=== PATIENT | female | born 1995 | race Caucasian/White ===

== ENCOUNTER → 2020-06-24 | Outpatient (CLI) | payer BC, SELFPAY ==
[2020-06-24 14:36] VITALS: BMI 41.8
[2020-06-24 18:08] LABS: Amphetamine Urine VISTA NEGATIVE (<1000 ng/mL); Barbiturate Urine VISTA NEGATIVE (< 200 ng/mL); Benzodiazepine Urine VISTA NEGATIVE (< 200 ng/mL); Cocaine Urine VISTA NEGATIVE (< 300 ng/mL); Ecstacy Urine VISTA NEGATIVE (< 500 ng/mL); Methadone Urine VISTA NEGATIVE (< 300 ng/mL); PCP Urine VISTA NEGATIVE (< 25 ng/mL); THC Urine VISTA NEGATIVE (< 50 ng/mL); Vista UDS pH Range 6
[2020-06-27 03:07] LABS: Chlamydia By Nucleic Acid AMP Negative (Negative)
[2020-06-27 10:06] LABS: Gonococcus By Nucleic Acid AMP Negative (Negative)
[2020-07-01 20:40] LABS: HPV Reflexed? NOT INDICATED
== END | disposition home or self-care (01) ==
LOC: LABSPEC 16:21
PROVIDERS: PCP Family Medicine; Referring Provider Obstetrics & Gynecology; Visit Provider Obstetrics & Gynecology
DX: Z34.90 Encounter for supervision of normal pregnancy, unspecified, unspecified trimester (principal); Z12.4 Encounter for screening for malignant neoplasm of cervix; Z11.3 Encounter for screening for infections with a predominantly sexual mode of transmission
CPT/HCPCS: 80307; 87077; 87086; 87088; 87186; 87491; 87591; 88175; G0145

== ENCOUNTER → 2020-07-22 13:44 | Outpatient (CLI) | payer BC, SELFPAY ==
[2020-06-24 14:36] VITALS: BMI 41.8
[2020-07-22 14:03] LABS: Absolute Lymphocyte Count 1.36 X10^3/uL (0.83-4.51); Absolute Neutrophil Count 6.4 X10^3/uL (2.0-7.7); Basophil# 0.01 X10^3/uL; Basophil% 0.1 % (0-1); Eosinophil# 0.13 X10^3/uL; Eosinophils% 1.6 % (0-5); Hemoglobin 11.4 g/dL (12.0-15.0); Lymphocyte # 1.36 X10^3/ul (4.0); Lymphocyte % 16.3 % (19-41); Mean Corp Hgb Conc 31.7 g/dL (32-36); Mean Corpuscular Hgb 24.7 pg (27.0-32.0); Mean Corpuscular Volume 78.1 fL (81-99); Mean Platelet Vol. 10.6 fl (6.2-12.0); Monocyte% 4.8 % (0-10); NRBC Flagged by Analyzer 0 % (0-5); Neutrophil # 6.39 X10^3/uL (2.7-7.7); Neutrophil % 76.6 % (47-70); Platelet Count 191 K/mm3 (150-450); RBC Distribution Width CV 15.1 % (11.6-14.6); RBC Distribution Width SD 42.4 fl (35.1-43.9); Red Blood Count 4.61 M/mm3 (4.2-5.4); White Blood Count 8.3 K/mm3 (4.4-11.0)
[2020-07-22 14:28] LABS: Glucose Challenge Gest 1H 50g 92 mg/dL (70-140)
[2020-07-22 15:16] LABS: HIV - WCH Non-Reactive (Nonreactive); Hepatitis B Surface Antigen Non-Reactive (Nonreactive); Hepatitis C Antibody Non-Reactive (Nonreactive); Rubella IgG Reactive (Nonreactive); Syphilis Antibodies Non-reactive
== END ==
PROVIDERS: PCP Family Medicine; Referring Provider Obstetrics & Gynecology; Visit Provider Obstetrics & Gynecology
DX: Z34.90 Encounter for supervision of normal pregnancy, unspecified, unspecified trimester (principal)
CPT/HCPCS: 36415; 82950; 85025; 86703; 86762; 86780; 86803; 86850; 86900; 86901; 87340

== ENCOUNTER → 2020-11-12 10:42 | Outpatient (CLI) | payer BC, SELFPAY ==
[2020-10-14 13:35] VITALS: BMI 43.4
[2020-11-12 11:07] LABS: Absolute Lymphocyte Count 1.21 X10^3/uL (0.83-4.51); Absolute Neutrophil Count 8.2 X10^3/uL (2.0-7.7); Basophil# 0.01 X10^3/uL; Basophil% 0.1 % (0-1); Hematocrit 32.2 % (37-47); Lymphocyte # 1.21 X10^3/ul (0.83-4.51); Lymphocyte % 12.1 % (19-41); Mean Corp Hgb Conc 31.1 g/dL (32-36); Mean Corpuscular Volume 77.2 fL (81-99); Mean Platelet Vol. 10.6 fl (6.2-12.0); Monocyte# 0.41 X10^3/uL; Monocyte% 4.1 % (0-10); NRBC Flagged by Analyzer 0 % (0-5); Neutrophil # 8.15 X10^3/uL (2.7-7.7); Neutrophil % 81.6 % (47-70); Platelet Count 201 K/mm3 (150-450); RBC Distribution Width CV 16.3 % (11.6-14.6); Red Blood Count 4.17 M/mm3 (4.2-5.4)
[2020-11-12 11:28] LABS: Glucose Challenge Gest 1H 50g 107 mg/dL (70-140)
== END ==
PROVIDERS: PCP Family Medicine; Referring Provider Obstetrics & Gynecology; Visit Provider Obstetrics & Gynecology
DX: O09.90 Supervision of high risk pregnancy, unspecified, unspecified trimester (principal); O36.0190 Maternal care for anti-D [Rh] antibodies, unspecified trimester, not applicable or unspecified; Z3A.00 Weeks of gestation of pregnancy not specified
CPT/HCPCS: 36415; 82950; 85025; 86850; 86900; 86901

== ENCOUNTER → 2020-11-26 08:56 | Outpatient (CLI) | payer BC, SELFPAY ==
[2020-11-12 12:02] VITALS: BMI 43.4
--- NOTE | 2020-11-26 08:58 | US_ITS ---
STUDY: SECOND AND THIRD TRIMESTER OBSTETRICAL ULTRASOUND - LIMITED REASON FOR EXAM: Female, 25 years old LGA LMP: 04/25/2020. PRIOR ULTRASOUND: Prior comparison studies are not available for review at this time. TECHNIQUE: Transabdominal TECHNICAL QUALITY: Adequate. FINDINGS: There is a single intrauterine fetus. The fetus is in a breech presentation. There is demonstrated cardiac activity with a heart rate of 150 bpm. There is a normal amniotic fluid volume. The largest amniotic fluid pocket measures 4.6 cm x 3.9 cm. The amniotic fluid index (WALLY) is 14.2 cm. The placenta is posterior in location and is not low lying. There are Grade 1 placental changes. The cervix measures 7.7 cm in length. BIOMETRY: BPD: 7.45 cm: 29 weeks, 6 days HC: 28.43 cm: 31 weeks, 1 days AC: 28.18 cm: 32 weeks, 1 days FL: 5.96 cm: 31 weeks, 0 days Age by LMP: 30 weeks, 5 days. LEONEL by LMP: 01/30/2021. age by prior US: 30 weeks, 5 days. LEONEL by prior US: 01/30/2021. age by current US: 31 weeks, 1 days. LEONEL by current US: 01/28/2021. Estimated weight: 1797 grams, +/- 270 grams, 67.3 percentile. US/OB Limited With Biometrics IMPRESSION: Single live intrauterine gestation with a mean gestational age of 30 weeks and 5 days. The measurements obtained today to follow within the normal expected range. Electronically Signed: Sanket Conde MD at 14:24 EDT , Service support ,
[2020-11-26 12:06] LABS: Ferritin 5 ng/mL (8-252); Iron 47 ug/dL (50-170); Iron Binding Capacity,Total 518 ug/dL (250-450); PERCENT IRON SATURATION 9.1 % (15.0-55.0)
== END ==
PROVIDERS: PCP Family Medicine; Referring Provider Obstetrics & Gynecology; Visit Provider Obstetrics & Gynecology
DX: O99.013 Anemia complicating pregnancy, third trimester (principal); D58.2 Other hemoglobinopathies; O98.513 Other viral diseases complicating pregnancy, third trimester; U07.1 COVID-19; O99.213 Obesity complicating pregnancy, third trimester; E66.9 Obesity, unspecified; Z3A.30 30 weeks gestation of pregnancy
CPT/HCPCS: 36415; 76816; 82728; 83540; 83550

== ENCOUNTER → 2020-12-27 08:46 | Outpatient (CLI) | payer BC, SELFPAY ==
[2020-11-26 11:16] VITALS: BMI 43.4
--- NOTE | 2020-12-27 08:53 | US_ITS ---
STUDY: SECOND AND THIRD TRIMESTER OBSTETRICAL ULTRASOUND REASON FOR EXAM: Female, 25 years old growth LMP: 04/25/2020. TECHNIQUE: Transabdominal TECHNICAL QUALITY: Adequate. PRIOR ULTRASOUND: Comparison is made with prior study dated 11/26/2020. FINDINGS: There is a single intrauterine fetus. The fetus is in a cephalic presentation. There is demonstrated cardiac activity with a heart rate of 127 bpm. There is a normal amniotic fluid volume. The largest amniotic fluid pocket measures 5.8 cm. The amniotic fluid index (WALLY) is 14.3 cm. The placenta is There are Grade 1 placental changes. The cervix measures 3.3 cm in length. The adnexal regions are not visualized. BIOMETRY: BPD: 8.64 cm: 34 weeks, 5 days HC: 31.44 cm: 35 weeks, 1 days AC: 33.63 cm: 37 weeks, 3 days FL: 6.71 cm: 34 weeks, 3 days CI: 80% FL/BPD: 78% FL/HC: FL/AC: 20% HC/AC: 0.94 age by current US: 35 weeks, 1 days. LEONEL by current US: 01/30/2021. Estimated weight: 2927 grams, +/- 439 grams, 91 %. age by prior US: 35 weeks, 3 days. LEONEL by prior US: 01/28/2021. Age by LMP: 35 weeks, 1 days. LEONEL by LMP: 01/30/2021. US/OB Limited With Biometrics IMPRESSION: Single live intrauterine gestation with a mean gestational age of 35 weeks and 3 days. The measurements obtained today fall within the normal expected range. Electronically Signed: Sanket Conde MD at 12:36 EDT , Service support ,
== END ==
PROVIDERS: PCP Family Medicine; Referring Provider Nurse Practitioner Women's Health; Visit Provider Nurse Practitioner Women's Health
DX: O98.513 Other viral diseases complicating pregnancy, third trimester (principal); U07.1 COVID-19; Z3A.35 35 weeks gestation of pregnancy
CPT/HCPCS: 76816

== ENCOUNTER → 2021-01-30 | Outpatient (CLI) | payer BC, SELFPAY | END | disposition home or self-care (01) | LOC: LABSPEC 13:18 | PROVIDERS: PCP Family Medicine; Referring Provider Obstetrics & Gynecology; Visit Provider Obstetrics & Gynecology | DX: O09.90 Supervision of high risk pregnancy, unspecified, unspecified trimester (principal); Z3A.00 Weeks of gestation of pregnancy not specified | CPT/HCPCS: 87635; U0005; U0003 ==

== ENCOUNTER 2021-01-31 01:35 | Inpatient (IN) | payer BC, MEDICAID, SELFPAY ==
[2021-01-31] VITALS (18 sets, daily range): BP systolic 102–129; BP diastolic 48–85; PULSE 72–109; RESP 16; TEMP 36–36.8; O2SAT 92–100; BMI 45.6
[2021-01-31] MEDS: Lactated Ringers 1,000 ML 999 ML IV (01:50)
[2021-01-31 02:04] LABS: Absolute Lymphocyte Count 1.64 X10^3/uL (0.83-4.51); Absolute Neutrophil Count 9.9 X10^3/uL (2.0-7.7); Basophil# 0.04 X10^3/uL; Basophil% 0.3 % (0-1); Eosinophil# 0.11 X10^3/uL; Eosinophils% 0.9 % (0-5); Hematocrit 34.4 % (37-47); Hemoglobin 10.3 g/dL (12.0-15.0); Lymphocyte # 1.64 X10^3/ul (0.83-4.51); Lymphocyte % 13.1 % (19-41); Mean Corp Hgb Conc 29.9 g/dL (32-36); Mean Corpuscular Hgb 21.5 pg (27.0-32.0); Mean Corpuscular Volume 71.8 fL (81-99); Mean Platelet Vol. 10.8 fl (6.2-12.0); Monocyte# 0.64 X10^3/uL; Monocyte% 5.1 % (0-10); NRBC Flagged by Analyzer 0 % (0-5); Neutrophil # 9.92 X10^3/uL (2.7-7.7); Neutrophil % 79.6 % (47-70); Platelet Count 259 K/mm3 (150-450); RBC Distribution Width CV 16.9 % (11.6-14.6); RBC Distribution Width SD 43.6 fl (35.1-43.9); Red Blood Count 4.79 M/mm3 (4.2-5.4); White Blood Count 12.5 K/mm3 (4.4-11.0)
[2021-01-31] MEDS: Oxytocin 30 units/NS 500 ml 30 UNITS/500 ML IV.SOLN 334 UNITS IV (02:22)
--- NOTE | 2021-01-31 02:29 | HP.PCM.OB_ITS ---
HPI - General General Date of Admission: 01/31/21 HPI Narrative DANK LARSON, is a 25 F at 40/1 who presents in active labor Maternal Data Information LEONEL Calculator Estimated Delivery Date Method Current WG Current Estimate 01/30/21 Ultrasound #1 40w 1d Other Estimates 01/19/21 LMP (Certain) 41w 5d PFSH PFSH Medical History Anxiety and depression Atrial tachycardia Hemoglobin D trait Sleep apnea Home Medications multivitamin no.47-iron fum 27 mg-folate no.1 1 mg-dha 300 mg capsule cap PO 06/19/20 [History Last Taken Unknown] fluoxetine 20 mg capsule 20 mg PO DAILY #30 cap 07/22/20 [Rx Last Taken Unknown] famotidine 20 mg tablet 20 mg PO BID #60 tab 09/25/20 [Rx Last Taken Unknown] Allergy/AdvReac Type Severity Reaction Status Date / Time No Known Allergies Allergy Verified 01/30/21 10:52 Family History Grandfather Diabetes Surgical History History of ankle surgery History of cardiac radiofrequency ablation Social History adopted: No household members: family housing: house number of children: 1 current occupational status: employed current occupation: [employer] pets and animals: No Smoking Status: Never smoker second hand exposure: No alcohol intake: current alcohol intake frequency: holidays/special occasions only details: not while substance use type: does not use seatbelt use: always do you feel safe at home: Yes 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 Date Name GA/Weeks Outcome Route Bth Weight Gen Labor Lgth Anesthesia Del Locatn Provider FOB 05/12/18 Ze 37 live - full term 9lbs 3oz Male 4-[address] [facility] [address] Tonja Sims Delivery Date: 05/12/18 No complications Rosario Burrell Visit Details Expected Delivery Route/Plan Labor Preferences- CB/BF classes: no labor support person: Levi labor intervention preferences: prefers to avoid catheter in labor pain management options preferred: epidural but natural as long as possible cut cord/dad catch: cord : yes PP control planned: progesterone pill discussed possible routes of delivery and associated risks: [] special requests: [] Plans flu vaccine: declines tdap vaccine: declines rhogam: na LARC form signed: yes Problem list reviewed and updated with the most current plan of care details and appropriate orders placed. Relevant counseling for the gestational age provided. Continue routine care and follow up unless otherwise noted in visit notes/problem list details OB Flowsheet Initial Weight: 263 lb Date -?-?-?-?-?-?-?-?-?-?-?-?- EGA Weight BP Urine Prot -?-?-?-?-?-?-?-?-?-?-?-?- Glucose FHR FuHt Pres Dilation -?-?-?-?-?-?-?-?-?-?-?-?- Effaced St Visit Note 06/24/20 -?-?-?-?-?-?-?-?-?-?-?-?- 8w 4d 263 lb (+0 oz) 100/80 -?-?-?-?-?-?-?-?-?-?-?-?- 160 -?-?-?-?-?-?-?-?-?-?-?-?- SM- CRL cons wit h LMP SM- CRL 1.7 cm NOT cons with LMP 07/22/20 -?-?-?-?-?-?-?-?-?-?-?-?- 12w 4d 264 lb (+16 oz) 104/82 Negative -?-?-?-?-?-?-?-?-?-?-?-?- Negative 160 -?-?-?-?-?-?-?-?-?-?-?-?- SM- no vb amanda stakrs , discussed increased mood symptoms, start prozac 08/19/20 -?-?-?-?-?-?-?-?-?-?-?-?- 16w 4d 267 lb 2 oz (+4 lb 2 oz) 116/80 Negative -?-?-?-?-?-?-?-?-?-?-?-?- Negative 145 -?-?-?-?-?-?-?-?-?-?-?-?- GP - no cramping or bleeding. Anatomy scan ordered. Still do not have prior OB records - will call to obtain. 09/17/20 -?-?-?-?-?-?-?-?-?-?-?-?- 20w 5d 270 lb (+7 lb) 102/74 Negative -?-?-?-?-?-?-?-?-?-?-?-?- Negative 155 -?-?-?-?-?-?-?-?-?-?-?-?- MH-No Vb, LOF. G ood FM. Enc baby ASA daily. Growth US at 28 wk 10/14/20 -?-?-?-?-?-?-?-?-?-?-?-?- 24w 4d 273 lb 4 oz (+10 lb 4 oz) 100/70 Negative -?-?-?-?-?-?-?-?-?-?-?-?- Negative 155 24 -?-?-?-?-?-?-?-?-?-?-?-?- GP - no LOF, VB, DFM, ctx. Discussed last labor - had very positive experience so would like to try to utilize same medications as last time. 11/12/20 -?-?-?-?-?-?-?-?-?-?-?-?- 28w 5d 275 lb (+12 lb) 124/80 Negative -?-?-?-?-?-?-?-?-?-?-?-?- Negative 145 32 -?-?-?-?-?-?-?-?-?-?--?-?- SM- no vb lof go od fm no regular ctx discussed low blood counts and reocmmend iron studies. 11/26/20 -?-?-?-?-?-?-?-?-?-?-?-?- 30w 5d 278 lb (+15 lb) 110/64 Negative -?-?-?-?-?-?-?-?-?-?-?-?- Negative 146 31 -?-?-?-?-?-?-?-?-?-?-?-?- MH-No Vb, LOF. G ood FM. Had growth US today. Larc. Francesca haque. Start NST at 32 wk 12/09/20 -?-?-?-?-?-?-?-?-?-?-?-?- 32w 4d 280 lb (+17 lb) 104/88 -?-?-?-?-?-?-?-?-?-?-?-?- 140 -?-?-?-?-?-?-?-?-?-?-?-?- SM- no vb lof go od fm no reuglar ctx nst today 12/20/20 -?-?-?-?-?-?-?-?-?-?-?-?- 34w 1d 279 lb 8 oz (+16 lb 8 oz) 128/68 Negative -?-?-?-?-?-?-?-?-?-?-?-?- Negative 140 -?-?-?-?-?-?-?-?-?-?-?-?- GP - NST only, r eactive 12/27/20 -?-?-?-?-?-?-?-?-?-?-?-?- 35w 1d 280 lb (+17 lb) 120/78 Negative -?-?-?-?-?-?-?-?-?-?-?-?- Negative 140 -?-?-?-?-?-?-?-?-?-?--?-?- SM- no vb lof go od fm no regular ctx 01/03/21 -?-?-?-?-?-?-?-?-?-?-?-?- 36w 1d 275 lb (+12 lb) 118/70 Trace -?-?-?--?-?-?-?-?-?-?-?-?- Negative 145 1 -?-?-?-?-?-?-?-?-?-?-?-?- 40 -3 GP - no LO F, VB, DFM, ctx. NST reactive 01/10/21 -?-?-?-?-?-?-?-?-?-?-?-?- 37w 1d 279 lb 4 oz (+16 lb 4 oz) 100/70 Negative -?-?-?-?-?-?-?-?-?-?-?-?- Negative 150 37 2 -?-?-?-?-?-?-?-?-?-?-?-?- 40 -1 GP - no LO F, VB, DFM, ctx. Discussed labor preferences. 01/16/21 -?-?-?-?-?-?-?-?-?-?-?-?- 38w 0d 280 lb 4 oz (+17 lb 4 oz) 124/70 Negative -?-?-?-?-?-?-?-?-?-?-?-?- Negative 140 2 -?-?-?-?-?-?-?-?-?-?-?-?- SM- no vb lof go od fm no reuglar ctx 01/23/21 -?-?-?-?-?-?-?-?-?-?-?-?- 39w 0d 138/80 Negative -?-?-?-?-?-?-?-?-?-?-?-?- Negative 140 39 -?-?-?-?-?-?-?-?-?-?-?-?- SM- no vb lof go od fm no reg ctx 01/30/21 -?-?-?-?-?-?-?-?-?-?-?-?- 40w 0d 283 lb 4 oz (+20 lb 4 oz) 122/70 Negative -?-?-?-?-?-?-?-?-?-?-?-?- Negative 150 40 Cephalic 4 -?-?-?-?-?-?-?-?-?-?-?-?- 60 -2 GP - no LO F, VB, dFM, ctx. IOL scheduled for 02/0301/31/21 -?-?-?-?-?-?-?-?-?-?-?-?- 40w 1d 282 lb 10.122 oz (+19 lb 10.122 oz) 104/48 -?-?-?-?-?-?-?-?-?-?-?-?- -?-?-?-?-?-?-?-?-?-?-?-?- NST FHR Rate Baby A Baseline: 130 Variability:: Moderate Accelerations:: 15 x 15 Decelerations:: Variable FHR Category:: Category II Uterine Activity:: q1-2 min ROS Eyes Eyes: Reports systems reviewed and no addt'l complaints, except as documented ENT HEENT: Reports systems reviewed and no addt'l complaints, except as documented Cardiovascular Cardiovascular: Reports systems reviewed and no addt'l complaints, except as documented Respiratory/Chest Respiratory/Chest: Reports systems reviewed and no addt'l complaints, except as documented Gastrointestinal Gastrointestinal: Reports systems reviewed and no addt'l complaints, except as documented Genitourinary Genitourinary: Reports systems reviewed and no addt'l complaints, except as documented Musculoskeletal Musculoskeletal: Reports systems reviewed and no addt'l complaints, except as documented Integumentary Integumentary: Reports systems reviewed and no addt'l complaints, except as documented Neurologic Neurologic: Reports systems reviewed and no addt'l complaints, except as documented Psychiatric Psychiatric: Reports systems reviewed and no addt'l complaints, except as documented Endocrine Endocrinology: Reports systems reviewed and no addt'l complaints, except as documented Hematologic/Lymphatic Hematologic/Lymphatic: Reports systems reviewed and no addt'l complaints, except as documented Allergic/Immunologic Allergic/Immunologic: Reports systems reviewed and no addt'l complaints, except as documented Vital Signs Vital Signs Vital Signs: 01/31/21 02:10 01/31/21 02:25 Pulse Rate 93 82 Blood Pressure 104/48 L BP Systolic 104 BP Diastolic 48 Pulse Ox 96 Weight Weight: 282 lb 10.122 oz Body Mass Index (BMI) 45.6 Physical Exam Const alert, oriented x3, no apparent distress, average body habitus, healthy appearing and well nourished HEENT normocephalic and moist oral mucous membranes Head and Scalp: atraumatic Eyes PERRL and EOMs intact bilaterally Neck full ROM Resp normal respiratory effort, no retractions and no use of accessory muscles Cardio regular rate and regular rhythm GI soft to palpation, non-tender and non-distended Extremity normal to inspection and full ROM Skin no rashes or lesions noted Neuro no focal motor deficits and no sensory deficits noted Psych mental status grossly normal, affect normal, speech normal and activity/motor behavior normal Labs Labs Labs: Blood Type A NEGATIVE Antibody Screen NEGATIVE Hct 34.4 % (37-47) L Hgb 10.3 g/dL (12.0-15.0) L Pap Smear Negative Obstetrics US Syphilis Total Ab Non-reactive Rubella IgG Antibody Reactive (Nonreactive) Hep Bs Antigen Non-Reactive (Nonreactive) Neisseria gonorrhoeae DNA (NELSY) Negative (Negative) HIV 1&2 Antibody Non-Reactive (Nonreactive) Glucose 1 Hr 50 gm 107 mg/dL (70-140) Assessment & Plan (1) Active labor at term: PLAN: Patient presents IAL, plan expectant management for , pitocin /AROM PRN if needed. Pain management: plans epidural. GBS positive plan IV PCN. Management of any complications: none I have reviewed the [facility] and made any clinically relevant updates. (2) Anemia affecting in third trimester: COMMENT: HgD trait. seen heme in past. (3) GBS (group B streptococcus) UTI complicating : QUALIFIERS: Trimester: first trimester Qualified Code(s): O23.41 - Unspecified infection of urinary tract in , first trimester; B95.1 - Streptococcus, group B, as the cause of diseases classified elsewhere COMMENT: s/p treatment, plan PCN in labor (4) Obesity affecting : QUALIFIERS: Trimester: second trimester Qualified Code(s): O99.212 - Obesity complicating , second trimester COMMENT: 1 tm glucola. encouraged healthy weight gain, third trimester testing. Growth US normal (5) Supervision of high risk , antepartum: COMMENT: PRR LEONEL: 01/30/21 girl PC: Ze Spouse: Levi (6) Rh negative status during : QUALIFIERS: Trimester: second trimester Qualified Code(s): O26.892 - Other specified related conditions, second trimester; Z67.91 - Unspecified blood type, Rh negative COMMENT: rhogam at 28 weeks and PRN (7) Anxiety and depression: COMMENT: prozac ordered. counseling encouraged. (8) Hemoglobin D trait: COMMENT: offered FOB testing. (9) History of cardiac radiofrequency ablation: COMMENT: [address] [place] [address] (10) Atrial tachycardia: COMMENT: Dx: 2014 (11) COVID-19 affecting , antepartum: COMMENT: growth US starting at 28 weeks; baby asa at 12 weeks (12) : QUALIFIERS: Weeks of gestation: 40 weeks Qualified Code(s): Z3A.40 - 40 weeks gestation of COMMENT: declines carrier,ntd, and genetic testing, nl anatomy
--- NOTE | 2021-01-31 02:32 | EX.PCM.OBRPT ---
Assessment & Plan (1) Active labor at term: (2) Spontaneous vaginal delivery: COMMENT: GP IAL 01/31 (precip) Girl-Kiki (3) Anemia affecting in third trimester: COMMENT: HgD trait. seen heme in past. (4) GBS (group B streptococcus) UTI complicating : QUALIFIERS: Trimester: first trimester Qualified Code(s): O23.41 - Unspecified infection of urinary tract in , first trimester; B95.1 - Streptococcus, group B, as the cause of diseases classified elsewhere COMMENT: s/p treatment, plan PCN in labor (5) Obesity affecting : QUALIFIERS: Trimester: second trimester Qualified Code(s): O99.212 - Obesity complicating , second trimester COMMENT: 1 tm glucola. encouraged healthy weight gain, third trimester testing. Growth US normal (6) Supervision of high risk , antepartum: COMMENT: PRR LEONEL: 01/30/21 girl PC: Ze Spouse: Levi (7) Rh negative status during : QUALIFIERS: Trimester: second trimester Qualified Code(s): O26.892 - Other specified related conditions, second trimester; Z67.91 - Unspecified blood type, Rh negative COMMENT: rhogam at 28 weeks and PRN (8) Anxiety and depression: COMMENT: prozac ordered. counseling encouraged. (9) Hemoglobin D trait: COMMENT: offered FOB testing. (10) History of cardiac radiofrequency ablation: COMMENT: [address] [place] [address] (11) Atrial tachycardia: COMMENT: Dx: 2014 (12) COVID-19 affecting , antepartum: COMMENT: growth US starting at 28 weeks; baby asa at 12 weeks (13) : QUALIFIERS: Weeks of gestation: 40 weeks Qualified Code(s): Z3A.40 - 40 weeks gestation of COMMENT: declines carrier,ntd, and genetic testing, nl anatomy Maternal Data Information LEONEL Calculator Estimated Delivery Date Method Current WG Current Estimate 01/30/21 Ultrasound #1 40w 1d Other Estimates 01/19/21 LMP (Certain) 41w 5d Vaginal Delivery Maternal Presentation Maternal Presentation: Active Labor Maternal Presentation: 25-year-old G2, P1 at 40 and 1 admitted in active labor. Patient made rapid cervical change from 6 cm to complete dilation and delivered precipitously. Operative Information Date of Procedure: 10/15/21 Pre-Operative Diagnosis: Term , active labor Post-Operative Diagnosis: Same Surgery / Procedure Performed: Spontaneous Vaginal Delivery Type of Anesthesia: None Drain: Ramirez to straight drain Estimated Blood Loss: 200 Findings Description of Procedure: Patient began pushing and delivered the head in the VERÓNICA presentation. The head was delivered atraumatically and no nuchal cord was noted. The anterior and posterior shoulders delivered without complication followed by the rest of the and the was placed on the maternal abdomen. Delayed cord clamping was employed for approximately 60 seconds. Cord was clamped and cut and gentle traction was applied to the cord and the placenta delivered spontaneously immediately following it was noted to be intact with three-vessel cord. The perineum and vagina were inspected and noted to have no laceration. EBL was 200 cc. Patient and tolerated delivery well. Presentation: Vertex and VERÓNICA Amniotic Membrane Rupture Type: Spontaneous Amniotic Fluid Description: Clear Placental Delivery Description: Spontaneous Placenta Disposition: [facility] Cord Vessel Description: 3 Vessels Cord Entanglement: None Infant A Gender: Female (1 minute): 9 (5 minute): 10 Delayed Cord Clamping: Yes Post Vaginal Delivery Medications Given After Delivery: IV Pitocin Episiotomy Description: None Laceration: None Complication Complications: None Procedures Urinary/Genital [id number]: [id number] [facility]
--- NOTE | 2021-01-31 02:36 | PCM.DC ---
Discharge Instructions Diet Discharge Diet: No restrictions Activity Discharge Activity: Return to Normal Activity, May Not Drive (while taking narcotic pain medications.) and May Shower May resume sexual activity in: 4-6 weeks Dressing / Incision Call your doctor if your incision/area has: Continuous Slow Oozing, Sudden Increased Bleeding, Increased Pain/ Swelling, Increased Redness and Foul Smelling Discharge Follow Up Care When: Call to make an appointment with your doctor in 6 weeks. If you had elevated Blood Pressure or 4th degree laceration you will need to be seen in 2 weeks. Test Results: Test results from this visit will be discussed in further detail at your follow-up appointment, if applicable. Discharge Plan Admission Admit Date/Time: 01/31/21 01:35 Primary Reason for Your Visit: Labor Attending Provider: Yisel Bhakta Primary Care Provider: Kavitha Noonan Instructions Patient Instructions: After a Vaginal Discharge Orders/Prescriptions Prescriptions: New ibuprofen 800 mg tablet 800 mg PO Q8H PRN (Reason: pain) Qty: 60 RF: 1 Continued PNV-DHA 27 mg iron-1 mg -300 mg capsule PO RF: 0 fluoxetine [Prozac] 20 mg capsule 20 mg PO DAILY Qty: 30 RF: 12 famotidine [Pepcid] 20 mg tablet 20 mg PO BID Qty: 60 RF: 6 Referrals / Follow Up: Kavitha Noonan MD [Primary Care Provider] -
[2021-01-31] MEDS: Ibuprofen 600 MG Tablet PO ×3 (03:32→19:46)
[2021-01-31] MEDS: 0.9% Saline Lock 10 ML Syringe IV (04:19)
[2021-01-31] MEDS: FLUoxetine 20 MG Capsule PO (09:38)
[2021-02-01 00:45] VITALS: BP 123/57; PULSE 82; RESP 18; TEMP 36.6; O2SAT 97
--- NOTE | 2021-02-01 03:09 | NURSING ---
PH9 Questionaire deferred. [place] Depression Scale used instead. 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 for discharge.
--- NOTE | 2021-02-01 07:13 | PCM.PN.OB ---
Subjective Subjective Patient doing well without complaints. Tolerating PO. Ambulating and voiding without difficulty. feeding well. Denies chest pain, shortness of breath, calf pain/swelling, fevers, chills, lightheadedness. Objective Data Objective Data Vital Signs: Vital Signs Temp Pulse Resp BP Pulse Ox 97.9 F 82 18 123/57 H 97 02/01/21 00:45 02/01/21 00:45 02/01/21 00:45 02/01/21 00:45 02/01/21 00:45 Oxygen Delivery Method Room Air Weight: 282 lb 10.122 oz Body Mass Index (BMI) 45.6 Intake & Output: Intake and Output for Last 24 Hours 01/30/21 01/31/21 02/01/21 23:59 23:59 23:59 Intake Total 810.58 / 810.58 Balance 810.58 / 810.58 Lab / Micro Data Result Diagrams: 01/31/21 01:50 Labs: Laboratory Results - last 24 hr 01/31/21 05:45: Screen NEGATIVE, Baby's Blood Type A POSITIVE, Baby's VALENTINA NEGATIVE ROS Constitutional Constitutional: Reports systems reviewed and no addt'l complaints, except as documented Cardiovascular Cardiovascular: Reports systems reviewed and no addt'l complaints, except as documented Respiratory/Chest Respiratory/Chest: Reports systems reviewed and no addt'l complaints, except as documented Gastrointestinal Gastrointestinal: Reports systems reviewed and no addt'l complaints, except as documented Physical Exam Const alert, oriented x3 and no apparent distress HEENT Head and Scalp: atraumatic Resp normal respiratory effort GI soft to palpation and non-tender Bimanual Exam - Vag & Uterus: uterus non-tender Uterus Palpation: uterus fundus firm (below Umbilicus) Assessment & Plan (1) Spontaneous vaginal delivery: COMMENT: GP MARTY 01/31 (precip) Girl-Kiki
[2021-02-01 08:31] VITALS: BP 121/72; PULSE 75; RESP 16; TEMP 36.1; O2SAT 97
[2021-02-01] MEDS: FLUoxetine 20 MG Capsule PO (11:53)
[2021-02-01 14:00] VITALS: BP 128/70; PULSE 80; RESP 16; TEMP 36.1; O2SAT 96
[2021-02-01 14:10] VITALS: BP 128/70; PULSE 80; RESP 16; TEMP 36.1; O2SAT 96
== END 2021-02-01 14:20 | disposition home or self-care (01) | DRG 805 ==
PROVIDERS: Admitting Provider Obstetrics & Gynecology; PCP Family Medicine; Visit Provider Obstetrics & Gynecology
DX: O76 Abnormality in fetal heart rate and rhythm complicating labor and delivery (principal); O99.42 Diseases of the circulatory system complicating childbirth; Z37.0 Single live birth; I47.1 Supraventricular tachycardia; O23.41 Unspecified infection of urinary tract in pregnancy, first trimester; O36.0130 Maternal care for anti-D [Rh] antibodies, third trimester, not applicable or unspecified; B95.1 Streptococcus, group B, as the cause of diseases classified elsewhere; O99.02 Anemia complicating childbirth; O42.92 Full-term premature rupture of membranes, unspecified as to length of time between rupture and onset of labor; D58.2 Other hemoglobinopathies; O62.3 Precipitate labor; O99.214 Obesity complicating childbirth; E66.9 Obesity, unspecified; O99.344 Other mental disorders complicating childbirth; F32.A Depression, unspecified; F41.9 Anxiety disorder, unspecified; Z3A.40 40 weeks gestation of pregnancy; Z86.16 Personal history of COVID-19
CPT/HCPCS: 59025; 59050; 85025; 85461; 86850; 86900; 86901; 90384; 99218; J7120; A4216; G0378; J2790

== ENCOUNTER → 2021-02-05 13:32 | Outpatient (CLI) | payer BC, MEDICAID, SELFPAY ==
[2021-02-05 14:08] LABS: Absolute Lymphocyte Count 1.52 X10^3/uL (0.83-4.51); Absolute Neutrophil Count 5.5 X10^3/uL (2.0-7.7); Basophil# 0.03 X10^3/uL; Basophil% 0.4 % (0-1); Eosinophil# 0.25 X10^3/uL; Eosinophils% 3.2 % (0-5); Hematocrit 32.4 % (37-47); Hemoglobin 9.6 g/dL (12.0-15.0); Lymphocyte # 1.52 X10^3/ul (0.83-4.51); Lymphocyte % 19.2 % (19-41); Mean Corp Hgb Conc 29.6 g/dL (32-36); Mean Corpuscular Hgb 21.9 pg (27.0-32.0); Mean Platelet Vol. 10.1 fl (6.2-12.0); Monocyte% 6.3 % (0-10); NRBC Flagged by Analyzer 0 % (0-5); Neutrophil % 69.5 % (47-70); Platelet Count 292 K/mm3 (150-450); RBC Distribution Width CV 16.9 % (11.6-14.6); RBC Distribution Width SD 45.6 fl (35.1-43.9); Red Blood Count 4.38 M/mm3 (4.2-5.4); White Blood Count 7.9 K/mm3 (4.4-11.0)
== END ==
PROVIDERS: PCP Family Medicine; Referring Provider Obstetrics & Gynecology; Visit Provider Obstetrics & Gynecology
DX: N93.9 Abnormal uterine and vaginal bleeding, unspecified (principal)
CPT/HCPCS: 36415; 85025

== ENCOUNTER → 2023-07-26 | Outpatient (CLI) | payer BC, SELFPAY ==
[2023-07-30 16:52] LABS: HPV Reflexed? NOT INDICATED
== END | disposition home or self-care (01) ==
LOC: LABSPEC 16:51
PROVIDERS: PCP Family Medicine; Referring Provider Obstetrics & Gynecology; Visit Provider Obstetrics & Gynecology
DX: Z12.4 Encounter for screening for malignant neoplasm of cervix (principal)
CPT/HCPCS: 88175; G0145

== ENCOUNTER → 2024-01-07 | Outpatient (CLI) | payer MEDICAID, SELFPAY ==
[2024-01-10 21:07] LABS: Chlamydia By Nucleic Acid AMP Negative (Negative); Gonococcus By Nucleic Acid AMP Negative (Negative)
== END | disposition home or self-care (01) ==
LOC: LABSPEC 15:16
PROVIDERS: PCP Family Medicine; Referring Provider Registered Nurse; Visit Provider Registered Nurse
DX: O99.210 Obesity complicating pregnancy, unspecified trimester (principal); Z68.41 Body mass index [BMI] 40.0-44.9, adult; Z3A.00 Weeks of gestation of pregnancy not specified
CPT/HCPCS: 87077; 87086; 87088; 87491; 87591

== ENCOUNTER → 2024-01-19 | Outpatient (CLI) | payer MEDICAID, SELFPAY ==
[2024-01-19 12:00] LABS: Absolute Lymphocyte Count 1.17 X10^3/uL (0.83-4.51); Absolute Neutrophil Count 5.2 X10^3/uL (2.0-7.7); Basophil# 0.02 X10^3/uL; Basophil% 0.3 % (0-1); Eosinophil# 0.08 X10^3/uL; Eosinophils% 1.2 % (0-5); Hematocrit 36.1 % (37-47); Hemoglobin 11.8 g/dL (12.0-15.0); Lymphocyte # 1.17 X10^3/ul (0.83-4.51); Lymphocyte % 17.2 % (19-41); Mean Corp Hgb Conc 32.7 g/dL (32-36); Mean Corpuscular Hgb 24.8 pg (27.0-32.0); Mean Platelet Vol. 11.2 fl (6.2-12.0); Monocyte# 0.36 X10^3/uL; Monocyte% 5.3 % (0-10); NRBC Flagged by Analyzer 0 % (0-5); Neutrophil # 5.17 X10^3/uL (2.7-7.7); Neutrophil % 75.7 % (47-70); Platelet Count 171 K/mm3 (150-450); RBC Distribution Width CV 14.6 % (11.6-14.6); RBC Distribution Width SD 39.7 fl (35.1-43.9); Red Blood Count 4.75 M/mm3 (4.2-5.4); White Blood Count 6.8 K/mm3 (4.4-11.0)
[2024-01-19 13:04] LABS: HIV - WCH Non-Reactive (Nonreactive); Hepatitis B Surface Antigen Non-Reactive (Nonreactive); Hepatitis C Antibody Non-Reactive (Nonreactive); Rubella IgG Reactive (Nonreactive); Syphilis Antibodies Non-reactive
== END | disposition home or self-care (01) ==
PROVIDERS: PCP Family Medicine; Referring Provider Registered Nurse; Visit Provider Registered Nurse
DX: O99.210 Obesity complicating pregnancy, unspecified trimester (principal); E66.01 Morbid (severe) obesity due to excess calories; Z3A.00 Weeks of gestation of pregnancy not specified
CPT/HCPCS: 36415; 83036; 85025; 86703; 86762; 86780; 86803; 86850; 86900; 86901; 87340

== ENCOUNTER → 2024-05-17 | Outpatient (CLI) | payer BC, MEDICAID, SELFPAY ==
[2024-05-17 11:14] LABS: Absolute Lymphocyte Count 1.13 X10^3/uL (0.83-4.51); Absolute Neutrophil Count 6.7 X10^3/uL (2.0-7.7); Basophil# 0.02 X10^3/uL; Basophil% 0.2 % (0-1); Eosinophil# 0.07 X10^3/uL; Eosinophils% 0.8 % (0-5); Hematocrit 33.5 % (37-47); Hemoglobin 10.5 g/dL (12.0-15.0); Lymphocyte # 1.13 X10^3/ul (0.83-4.51); Lymphocyte % 13.3 % (19-41); Mean Corp Hgb Conc 31.3 g/dL (32-36); Mean Corpuscular Volume 76.5 fL (81-99); Mean Platelet Vol. 10.7 fl (6.2-12.0); Monocyte# 0.43 X10^3/uL; Monocyte% 5.1 % (0-10); NRBC Flagged by Analyzer 0 % (0-5); Neutrophil # 6.71 X10^3/uL (2.7-7.7); Neutrophil % 79.3 % (47-70); Platelet Count 220 K/mm3 (150-450); RBC Distribution Width CV 15.5 % (11.6-14.6); RBC Distribution Width SD 42.1 fl (35.1-43.9); Red Blood Count 4.38 M/mm3 (4.2-5.4); White Blood Count 8.5 K/mm3 (4.4-11.0)
[2024-05-17 11:27] LABS: Glucose Challenge Gest 1H 50g 91 mg/dL (70-140)
[2024-05-17 11:49] LABS: HIV - WCH Non-Reactive (Nonreactive); Syphilis Antibodies Non-reactive
== END | disposition home or self-care (01) ==
PROVIDERS: PCP Family Medicine; Referring Provider Obstetrics & Gynecology; Visit Provider Obstetrics & Gynecology
DX: O09.90 Supervision of high risk pregnancy, unspecified, unspecified trimester (principal); Z13.1 Encounter for screening for diabetes mellitus; Z3A.00 Weeks of gestation of pregnancy not specified
CPT/HCPCS: 36415; 82950; 85025; 86703; 86780; 86850; 86900; 86901

== ENCOUNTER → 2024-06-20 | Outpatient (CLI) | payer BC, SELFPAY ==
--- NOTE | 2024-06-20 13:00 | US_ITS ---
PROCEDURE: OB LIMITED WITH BIOMETRICS REASON FOR EXAM: growth. COMPARISON: None. FINDINGS LMP: November 03, 2023 Number: 1 Position: Vertex Placental Position: Anterior and not low-lying. Placental Abnormalities: None. DIMENSIONS: Biparietal Diameter: 8 cm: 32 weeks and 1 day: 24 percentile/ Head Circumference: 29.6 cm: 32 weeks and 5 days: 14 percentile/ Abdominal Circumference: 30.8 cm: 34 weeks and 5 days: 93rd percentile/ Femur Length: 6.1 cm: 31 weeks and 4 days, 11th percentile/ ESTIMATED WEIGHT: 2218 g plus/-333 g ESTIMATED WEIGHT PERCENTILE (24+ weeks): 62% ESTIMATED GESTATIONAL AGE: Baseline: 32 weeks 6 days By Ultrasound: 32 weeks 6 days ESTIMATED DATE OF DELIVERY: Baseline: August 09, 2024 By Ultrasound: August 09, 2024 BIOPHYSICAL ASSESSMENT: Amniotic Fluid Volume: Subjectively normal. Amniotic Fluid Index: 10.7 (8-24 cm normal range) Cardiac Motion: 143 beats per minute (average) Trunk and Limb Motion: Present. MATERNAL ANATOMY: Adnexa: Neither maternal ovary is successfully identified. US/OB Limited With Biometrics IMPRESSION: Single live intrauterine gestation with a mean gestational age of 32 weeks and 6 days. Reading Location: [facility]
== END | disposition home or self-care (01) ==
LOC: US 13:00
PROVIDERS: PCP Family Medicine; Referring Provider Obstetrics & Gynecology; Visit Provider Obstetrics & Gynecology
DX: O99.213 Obesity complicating pregnancy, third trimester (principal); Z3A.32 32 weeks gestation of pregnancy
CPT/HCPCS: 76816

== ENCOUNTER 2024-07-12 10:55 | Outpatient (CLI) | payer BC, SELFPAY ==
[2024-07-12 11:12] VITALS: BMI 46.3
[2024-07-12 11:16] VITALS: PULSE 111; O2SAT 97
[2024-07-12 11:22] VITALS: BP 108/61; PULSE 95; RESP 18; TEMP 37.1
--- NOTE | 2024-07-12 11:51 | US_ITS ---
EXAM: Biophysical profile. CLINICAL HISTORY: 28 y/o F with NONREASSURING NST COMPARISON: None. FINDINGS: A single wrapped nuchal cord is noted during the time of this examination. Single fetus is seen in cephalic presentation. motion and cardiac activity were monitored, heart rate 155 beats per minute. Anterior grade 2 placenta without previa. Amniotic fluid in 4 quadrants, WALLY of 15.2 cm. The largest fluid pocket is measured at 4.7 x 2.1 cm. limited views of the fetus demonstrate no remarkable abnormalities. Biophysical profile 11/24. US/Biophysical Prof W/O Non Stres IMPRESSION: Single live intrauterine in cephalic presentation. A single wrapped nuchal cord is seen. Normal amniotic fluid volume. Biophysical profile of 11/24. Reading Location: [id number]
--- NOTE | 2024-07-12 12:41 | OB.TRI.HP_ITS ---
HPI - General HPI Narrative DANK EASON, is a 28 y/o @ 36 weeks who presents to L&D from office due to inability to obtain an NST in the office setting. NSt and bpp ordered. She denies loss of fluid, vaginal bleeding, or dec fm. NSTs are being performed for obesity. Maternal Data Information LEONEL Calculator Estimated Delivery Date Method Current WG Current Estimate 08/09/24 Ultrasound #1 36w 0d Other Estimates 07/30/24 LMP (Certain) 37w 3d PFSH PFSH Medical History Anxiety and depression Spontaneous vaginal delivery Anxiety Hemoglobin D trait Sleep apnea Atrial tachycardia Home Medications ?Medication ?Instructions ?Recorded ?Last Taken ?Type multivitamin no.47-iron fum 27 1 cap PO DAILY 12/28/23 07/09/24 21:00 History mg-folate no.1 1 mg-dha 300 mg 1 cap capsule (PNV-DHA) famotidine 20 mg tablet (Pepcid) 20 mg PO BID #60 tabs 03/29/24 07/11/24 21:00 Rx 20 mg Allergy/AdvReac Type Severity Reaction Status Date / Time No Known Allergies Allergy Verified 07/12/24 11:13 Family History Grandfather Diabetes Grandmother Cancer, Onset Age: 70 Maternal lung cancer Grandmother Breast cancer, Onset Age: 75 Paternal Surgical History History of ankle surgery History of cardiac radiofrequency ablation Social History adopted: No household members: family housing: house number of children: 2 current occupational status: unemployed current occupation: [employer] pets and animals: Yes pets and animals: dog(s) history of recent travel: Yes (-November) out of state: Yes out of country: No sexually active: Yes Smoking Status: Former smoker how long ago did patient quit smoking: distant past second hand exposure: No alcohol intake: current alcohol intake frequency: holidays/special occasions only details: not while substance use type: does not use well-balanced diet: daily or most days caffeine: Yes Type: coffee Number of servings: 1 eating out: 1-3 times/week during the past year weight has: remained stable what type of physical activity do you participate in: none tamanna/adventism: Gnosticism seatbelt use: always do you feel safe at home: Yes additional social history: - Levi ([employer]) History 3 Elective abortions Hx Para 2 Spontaneous abortions Hx # Term Pregnancies Ectopic pregnancies Hx # Pregnancies Multiple births # of living children 2 Past Pregnancies Del. Date Name GA/Weeks Outcome Route Bth Weight Infant Gen Labor Lgth Anesthesia Del Locatn Provider FOB 05/12/18 Ze 37 live - full term 9lbs 3oz Male 4-6 hours spinal [facility] Dr. Tonja Sims 01/31/21 Kiki 40 live - full term 9#4oz Female precipitous delivery none [facility] SM Delivery Date: 05/12/18 Last Updated by: Rosario Burrell No complications Visit Details Expected Delivery Route/Plan Labor Preferences- CB/BF classes: declined labor support person: Levi labor intervention preferences: minimal pain management options preferred: plans unmedicated, desires movement during pushing cut cord/dad catch: [] : wants to try PP control planned: [] discussed possible routes of delivery and associated risks: [] special requests: [] Plans Covid status: [] Flu vaccine: [] Tdap vaccine: declines Rhogam: 05/17/29 LARC form signed: yes movement and labor precautions reviewed. Problem list reviewed and updated with the most current plan of care details and appropriate orders placed. Relevant counseling for the gestational age provided. Continue routine care and follow up unless otherwise noted in visit notes/problem list details OB Flowsheet Initial Weight: 268 lb Date -?-?-?-?-?-?-?-?-?-?-?-?- EGA Weight BP Urine Prot -?-?-?-?-?-?-?-?-?-?-?-?- Glucose FHR FuHt Pres Dilation -?-?-?-?-?-?-?-?-?-?-?-?- Effaced St Visit Note 01/07/24 -?-?-?-?-?-?-?-?-?-?-?-?- 9w 2d 268 lb 6 oz (+6 oz) 130/84 -?-?-?-?-?-?-?-?-?-?-?-?- 175 -?-?-?-?-?-?-?-?-?-?-?-?- LC- 23.1mm LEONEL n ot cw LMP. chnaged to 08/09/2024. 02/04/24 -?-?-?-?-?-?-?-?-?-?-?-?- 13w 2d 273 lb (+5 lb) 136/80 Negative -?-?-?-?-?-?-?-?-?-?-?-?- Negative 160 -?-?-?-?-?-?-?-?-?-?-?-?- SM- no vb crampi ng having uti symptoms 02/28/24 -?-?-?-?-?-?-?-?-?-?-?-?- 16w 5d 271 lb (+3 lb) 112/68 Negative -?-?-?-?-?-?-?-?-?-?-?-?- Negative 155 -?-?-?-?-?-?-?-?-?-?-?-?- KW- no vb.crampi ng. possible flutters. US scheduled 03/13. declines AFP testing. 03/29/24 -?-?-?-?-?-?-?-?-?-?-?-?- 21w 0d 277 lb 2 oz (+9 lb 2 oz) 132/76 Negative -?-?-?-?-?-?-?-?-?-?-?-?- Negative 140 -?-?-?-?-?-?-?-?-?-?-?-?- JV- no lof, vagi nal bleeding, or dec fm. JV- no lof, vaginal bleeding , or dec fm. has c/o indigestion. sending in order for pepcid. normal anatomy scan 04/27/24 -?-?-?-?-?-?-?-?-?-?-?-?- 25w 1d 279 lb (+11 lb) 103/67 Trace -?-?-?-?-?-?-?-?-?-?-?-?- Negative 145 32 -?-?-?-?-?-?-?-?-?-?-?-?- JV- no lof, vagi nal bleeding, or dec fm. still with indigestion but forgets to take pepcid all the time. follow up anatomy was normal. 05/17/24 -?-?-?-?-?-?-?-?-?-?-?-?- 28w 0d 284 lb 4 oz (+16 lb 4 oz) 108/66 Negative -?-?-?-?-?-?-?-?-?-?-?-?- Negative 136 30 -?-?-?-?-?-?-?-?-?-?-?-?- MH-no VB, LOF. G ood FM. 28 wk labs pending. Rhogam, larc. Declines tdap 05/29/24 -?-?-?-?-?-?-?-?-?-?-?-?- 29w 5d 283 lb 4 oz (+15 lb 4 oz) 96/57 Trace -?-?-?-?-?-?-?-?-?-?-?-?- Negative 140 32 -?-?-?-?-?-?-?-?-?-?-?-?- KW- no vb/lof/ct x. good fm. glucose normal. 06/13/24 -?-?-?-?-?-?-?-?-?-?-?-?- 31w 6d 286 lb 4 oz (+18 lb 4 oz) 122/73 Negative -?-?-?-?-?-?-?-?-?-?-?-?- Negative 140 34 -?-?-?-?-?-?-?-?-?-?-?-?- SM- no vb lof go od fm nro egular ctx 06/30/24 -?-?-?-?-?-?-?-?-?-?-?-?- 34w 2d 289 lb 6 oz (+21 lb 6 oz) 113/78 Negative -?-?-?-?-?-?-?-?-?-?-?-?- Negative 138 35 Cephalic -?-?-?-?-?-?-?-?-?-?-?-?- LC- no vb/ctx/lo f. good fm. 07/12/24 -?-?-?-?-?-?-?-?-?-?-?-?- 36w 0d 288 lb 4 oz (+20 lb 4 oz) 130/82 -?-?-?-?-?-?-?-?-?-?-?-?- 120 Cephalic 0 -?-?-?-?-?-?-?-?-?-?-?-?- JV- unable to co mplete the NST due to abdominal obesity. gbs collected. sent to L&D for monitoring. ordering BPP's going forward. ROS Constitutional Constitutional: Reports systems reviewed and no addt'l complaints, except as documented Gastrointestinal Gastrointestinal: Denies bloating, constipation, cramping, diarrhea, nausea or vomiting Genitourinary Genitourinary: Reports other Details: Denies vaginal odor, vaginal bleeding, or vaginal discharge ; Denies difficulty urinating or flank pain NST FHR Rate Baby A Baseline: 150 Variability:: Moderate Accelerations:: 15 x 15 Decelerations:: None NST Reactive:: Yes FHR Category:: Category I Assessment & Plan (1) Anemia, mild: COMMENT: OTC Slow Fe daily opposite PNV (2) Obesity affecting : QUALIFIERS: Trimester: third trimester Obesity type affecting : unspecified obesity Qualified Code(s): O99.213 - Obesity complicating , third trimester COMMENT: weekly nsts after 36 weeks growth US at 32 and 36 weeks (3) Rh negative status during : QUALIFIERS: Trimester: third trimester Qualified Code(s): O26.893 - Other specified related conditions, third trimester; Z67.91 - Unspecified blood type, Rh negative COMMENT: Rhogam @ 28 wks & prn bleeding, Given 05/17/24 (4) Anxiety and depression: COMMENT: prozac ordered but not taking at this time counseling encouraged. (5) Supervision of high-risk : QUALIFIERS: Trimester: third trimester Qualified Code(s): O09.93 - Supervision of high risk , unspecified, third trimester COMMENT: PRR , LEONEL 07/30/24, Nani Motta; Levi (6) : QUALIFIERS: Weeks of gestation: 36 weeks Qualified Code(s): Z3A.36 - 36 weeks gestation of COMMENT: declines genetic & carrier testing. nl anatomy (7) History of precipitous delivery: PLAN: Plan nst reactive and bpp is 11/24. ok to dc to home Charges/Coding Multi Select Codes Urinary/Genital Urinary/Genital CPT Codes: 70207-20 non-stress test Interp
== END 2024-07-12 12:44 | disposition home or self-care (01) ==
LOC: WPOUT 11:06 → WP 11:06
PROVIDERS: PCP Family Medicine; Referring Provider Obstetrics & Gynecology; Visit Provider Obstetrics & Gynecology
DX: O99.013 Anemia complicating pregnancy, third trimester (principal); Z87.891 Personal history of nicotine dependence; Z3A.36 36 weeks gestation of pregnancy; O99.213 Obesity complicating pregnancy, third trimester; O26.893 Other specified pregnancy related conditions, third trimester; E66.9 Obesity, unspecified
CPT/HCPCS: 59025; 59050; 76819; 87081; 99221; G0378

== ENCOUNTER → 2024-07-21 | Outpatient (CLI) | payer BC, SELFPAY ==
--- NOTE | 2024-07-21 13:42 | US_ITS ---
PROCEDURE: OB LIMITED WITH BIOMETRICS 07/21/2024 REASON FOR EXAM: GROWTH TECHNIQUE: Ob limited with biometrics transabdominal imaging COMPARISON: 07/12/2024 and 06/20/2024 FINDINGS Study is limited due to patient body habitus. Single live intrauterine . cardiac activity 146 beats per minute. Presentation is cephalic. Cervical length 3.3 cm and appears closed. Adnexa not visualized. WALLY: 10.4 cm, maximum pocket 4 cm Anterior grade 2 placenta appears within limits, not low-lying. BPD 9.3 cm, 37 weeks and 6 days, 80% HC 34 cm, 39 weeks 3 days, 76% AC 35 cm, 39 weeks 1 days, 96% Femur length 7.1 cm, 36 weeks 1 day, 22% FL/AC 20%, FL/BPD 76%, FL/HC 21%, CI 80%, HC/AC 0.97 Estimated weight 3464 g +/-520 g, 82% Estimated age by current ultrasound 38 weeks and 0 days, LEONEL 08/04/2024 age by prior ultrasound of 06/20/2024, 37 weeks and 2 days, LEONEL 08/09/2024 age by LMP 37 weeks 2 days, LEONEL 08/09/2024 The appearance of a single wrapped nuchal cord is again seen. US/OB Limited With Biometrics IMPRESSION: Single live intrauterine with biometrics as above. The appearance of a single wrapped nuchal cord is again seen. Findings discussed with Dr. Hay by myself by phone 07/21/2024. Reading Location: [id number]
== END | disposition home or self-care (01) ==
LOC: US 13:31
PROVIDERS: PCP Family Medicine; Referring Provider Obstetrics & Gynecology; Visit Provider Obstetrics & Gynecology
DX: O99.213 Obesity complicating pregnancy, third trimester (principal); Z3A.38 38 weeks gestation of pregnancy; O36.5930 Maternal care for other known or suspected poor fetal growth, third trimester, not applicable or unspecified
CPT/HCPCS: 76816

== ENCOUNTER 2024-08-09 07:18 | Inpatient (IN) | payer OTHER, SELFPAY ==
[2024-08-09] VITALS (25 sets, daily range): BP systolic 109–136; BP diastolic 59–86; PULSE 77–108; RESP 17–20; TEMP 35.8–37.3; O2SAT 96–98; BMI 47.0
[2024-08-09] MEDS: Lactated Ringers 1,000 ML 50 ML IV (07:50)
[2024-08-09] MEDS: Mag Hydrox/Al Hydrox/Simeth 30 ML UDC PO (07:59)
[2024-08-09 08:07] LABS: Absolute Lymphocyte Count 1.32 X10^3/uL (0.83-4.51); Absolute Neutrophil Count 8.2 X10^3/uL (2.0-7.7); Basophil# 0.03 X10^3/uL; Basophil% 0.3 % (0-1); Hematocrit 31.4 % (37-47); Hemoglobin 9.8 g/dL (12.0-15.0); Lymphocyte # 1.32 X10^3/ul (0.83-4.51); Lymphocyte % 12.8 % (19-41); Mean Corp Hgb Conc 31.2 g/dL (32-36); Mean Corpuscular Hgb 22.1 pg (27.0-32.0); Mean Corpuscular Volume 70.9 fL (81-99); Mean Platelet Vol. 10.7 fl (6.2-12.0); Monocyte% 5.8 % (0-10); NRBC Flagged by Analyzer 0 % (0-5); Neutrophil % 79.1 % (47-70); Platelet Count 241 K/mm3 (150-450); RBC Distribution Width CV 16.6 % (11.6-14.6); RBC Distribution Width SD 42.2 fl (35.1-43.9); Red Blood Count 4.43 M/mm3 (4.2-5.4); White Blood Count 10.4 K/mm3 (4.4-11.0)
[2024-08-09] MEDS: Oxytocin 15 Units/NS 250ml 15 UNITS/250 ML IV.SOLN 2 UNITS IV (08:19)
--- NOTE | 2024-08-09 08:19 | HP.PCM.OB_ITS ---
HPI - General General Date of Admission: 08/09/24 HPI Narrative DANK EASON, is a 29 y/o @ 40 weeks 0 days who presents to L&d for elective IOL due to h/o precip delivery in the past and john score of 8. She denies lof, vaginal bleeding, or dec fm. states lost a lot of mucous plug Maternal Data Information LEONEL Calculator Estimated Delivery Date Method Current WG Current Estimate 08/09/24 Ultrasound #1 40w 0d Other Estimates 07/30/24 LMP (Certain) 41w 3d PFSH PFSH Medical History Anxiety and depression Spontaneous vaginal delivery Anxiety Hemoglobin D trait Sleep apnea Atrial tachycardia Home Medications ?Medication ?Instructions ?Recorded ?Last Taken ?Type multivitamin no.47-iron fum 27 1 cap PO DAILY pregnanc y 12/28/23 07/09/24 21:00 History mg-folate no.1 1 mg-dha 300 mg 1 cap capsule (PNV-DHA) famotidine 20 mg tablet (Pepcid) 20 mg PO BID heartbur n #60 tabs 03/29/24 07/11/24 21:00 Rx 20 mg Allergy/AdvReac Type Severity Reaction Status Date / Time No Known Allergies Allergy Verified 08/09/24 07:30 Family History Grandfather Diabetes Grandmother Cancer, Onset Age: 70 Maternal lung cancer Grandmother Breast cancer, Onset Age: 75 Paternal Surgical History History of ankle surgery History of cardiac radiofrequency ablation Social History adopted: No household members: family housing: house number of children: 2 current occupational status: unemployed current occupation: [employer] pets and animals: Yes pets and animals: dog(s) history of recent travel: Yes (-November) out of state: Yes out of country: No sexually active: Yes Smoking Status: Never smoker how long ago did patient quit smoking: distant past second hand exposure: No alcohol intake: current alcohol intake frequency: holidays/special occasions only details: not while substance use type: does not use well-balanced diet: daily or most days caffeine: Yes Type: coffee Number of servings: 1 eating out: 1-3 times/week during the past year weight has: remained stable what type of physical activity do you participate in: none tamanna/congregational: Scientology seatbelt use: always do you feel safe at home: Yes additional social history: - Levi ([employer]) History 3 Elective abortions Hx Para 2 Spontaneous abortions Hx # Term Pregnancies Ectopic pregnancies Hx # Pregnancies Multiple births # of living children 2 Past Pregnancies Del. Date Name GA/Weeks Outcome Route Bth Weight Gen Labor Lgth Anesthesia Del Locatn Provider FOB 05/12/18 Ze 37 live - full term 9lbs 3oz Male 4-6 hours spinal [facility] Dr. Tonja Sims 01/31/21 Kiki 40 live - full term 9#4oz Female precipitous delivery none [facility] SM Delivery Date: 05/12/18 Last Updated by: Rosario Burrell No complications Visit Details Expected Delivery Route/Plan Labor Preferences- CB/BF classes: declined labor support person: Levi labor intervention preferences: minimal pain management options preferred: plans unmedicated, desires movement during pushing cut cord/dad catch: [] : wants to try PP control planned: [] discussed possible routes of delivery and associated risks: [] special requests: [] Plans Covid status: [] Flu vaccine: [] Tdap vaccine: declines Rhogam: 05/17/29 LARC form signed: yes movement and labor precautions reviewed. Problem list reviewed and updated with the most current plan of care details and appropriate orders placed. Relevant counseling for the gestational age provided. Continue routine care and follow up unless otherwise noted in visit notes/problem list details OB Flowsheet Initial Weight: 268 lb Date -?-?-?-?-?-?-?-?-?-?-?-?- EGA Weight BP Urine Prot -?-?-?-?-?-?-?-?-?-?-?-?- Glucose FHR FuHt Pres Dilation -?-?-?-?-?-?-?-?-?-?-?-?- Effaced St Visit Note 01/07/24 -?-?-?-?-?-?-?-?-?-?-?-?- 9w 2d 268 lb 6 oz (+6 oz) 130/84 -?-?-?-?-?-?-?-?-?-?-?-?- 175 -?-?-?-?-?-?-?-?-?-?-?-?- LC- 23.1mm LEONEL n ot cw LMP. chnaged to 08/09/2024. 02/04/24 -?-?-?-?-?-?-?-?-?-?-?-?- 13w 2d 273 lb (+5 lb) 136/80 Negative -?-?-?-?-?-?-?-?-?-?-?-?- Negative 160 -?-?-?-?-?-?-?-?-?-?-?-?- SM- no vb crampi ng having uti symptoms 02/28/24 -?-?-?-?-?-?-?-?-?-?-?-?- 16w 5d 271 lb (+3 lb) 112/68 Negative -?-?-?-?-?-?-?-?-?-?-?-?- Negative 155 -?-?-?-?--?-?-?-?-?-?-?-?- KW- no vb.crampi ng. possible flutters. US scheduled 03/13. declines AFP testing. 03/29/24 -?-?-?-?-?-?-?-?-?-?-?-?- 21w 0d 277 lb 2 oz (+9 lb 2 oz) 132/76 Negative -?-?-?-?-?-?-?-?-?-?-?-?- Negative 140 -?-?-?-?-?-?-?-?-?-?-?-?- JV- no lof, vagi nal bleeding, or dec fm. JV- no lof, vaginal bleeding , or dec fm. has c/o indigestion. sending in order for pepcid. normal anatomy scan 04/27/24 -?-?-?-?-?-?-?-?-?-?-?-?- 25w 1d 279 lb (+11 lb) 103/67 Trace -?-?-?-?-?-?-?-?-?-?-?-?- Negative 145 32 -?-?-?-?-?-?-?-?-?-?-?-?- JV- no lof, vagi nal bleeding, or dec fm. still with indigestion but forgets to take pepcid all the time. follow up anatomy was normal. 05/17/24 -?-?-?-?-?-?-?-?-?-?-?-?- 28w 0d 284 lb 4 oz (+16 lb 4 oz) 108/66 Negative -?-?-?-?-?-?-?-?-?-?-?-?- Negative 136 30 -?-?-?-?-?-?-?-?-?-?-?-?- MH-no VB, LOF. G ood FM. 28 wk labs pending. Rhogam, larc. Declines tdap 05/29/24 -?-?-?-?-?-?-?-?-?-?-?-?- 29w 5d 283 lb 4 oz (+15 lb 4 oz) 96/57 Trace -?-?-?-?-?-?-?-?-?-?-?-?- Negative 140 32 -?-?-?-?-?-?-?-?-?-?-?-?- KW- no vb/lof/ct x. good fm. glucose normal. 06/13/24 -?-?-?-?-?-?-?-?-?-?-?-?- 31w 6d 286 lb 4 oz (+18 lb 4 oz) 122/73 Negative -?-?-?-?-?-?-?-?-?-?-?-?- Negative 140 34 -?-?-?-?-?-?-?-?-?-?-?-?- SM- no vb lof go od fm nro egular ctx 06/30/24 -?-?-?-?-?-?-?-?-?-?-?-?- 34w 2d 289 lb 6 oz (+21 lb 6 oz) 113/78 Negative -?-?-?-?-?-?-?-?-?-?-?-?- Negative 138 35 Cephalic -?-?-?-?-?-?-?-?-?-?-?-?- LC- no vb/ctx/lo f. good fm. 07/12/24 -?-?-?-?-?-?-?-?-?-?-?-?- 36w 0d 288 lb 4 oz (+20 lb 4 oz) 130/82 -?-?-?-?-?-?-?-?-?-?-?-?- 120 Cephalic 0 -?-?-?-?-?-?-?-?-?-?-?-?- JV- unable to co mplete the NST due to abdominal obesity. gbs collected. sent to L&D for monitoring. ordering BPP's going forward. 07/19/24 -?-?-?-?-?-?-?-?-?-?-?-?- 37w 0d 291 lb 2 oz (+23 lb 2 oz) 121/80 Negative -?-?-?-?-?-?-?-?-?-?-?-?- Negative 140 38 Cephalic -?-?-?-?-?-?-?-?-?-?-?-?- SM- discussed miller ving US wednesday, patient requesting to at least try having NSt first due to cost of BPPs. no vb lof good fm no reuglar ctx 07/27/24 -?-?-?-?-?-?-?-?-?-?-?-?- 38w 1d 288 lb 6 oz (+20 lb 6 oz) 129/88 Trace -?-?-?-?-?-?-?-?-?-?-?-?- Negative 150 Cephalic 1 -?-?-?-?-?-?-?-?-?-?-?-?- 20 -4 MH-No VB, LOF. Good Fm. Reactive NST. Last US AC 98%:1 hr GCT ordered. 08/03/24 -?-?-?-?-?-?-?-?-?-?-?-?- 39w 1d 292 lb 2 oz (+24 lb 2 oz) 118/79 Negative -?-?-?-?-?-?-?-?-?-?-?-?- Negative 140 Cephalic 3 -?-?-?-?-?-?-?-?-?-?-?-?- 50 -2 KW- no vb/ lof/ctx. good fm. Discussed IOL for previous precip delivery KW- no vb/lof/ctx. good fm. Discussed IOL for previous precip delivery- requesting 40 week IOL. EFW at 4250-9.3lbs-same as previous children. 08/07/24 -?-?-?-?-?-?-?-?-?-?-?-?- 39w 5d 293 lb (+25 lb) 127/84 Trace -?-?-?-?-?-?-?-?-?-?-?-?- Negative 135 Cephalic 4 -?-?-?-?-?-?-?-?-?-?-?-?- 60 -2 KW- no vb/ lof/ctx. good fm. membrane sweep today. IOL set up for hx of 2 hour labor NST FHR Rate Baby A Baseline: 140's Variability:: Moderate Accelerations:: 15 x 15 FHR Category:: Category I Uterine Activity:: irregular contractions noted ROS Constitutional Constitutional: Denies change in weight, fatigue, fever(s), headache(s), poor appetite or weakness Eyes Eyes: Denies blurry vision, change in vision, seeing flashes or spots in vision ENT HEENT: Denies dizziness, headache(s), loss taste/smell or sore throat Cardiovascular Cardiovascular: Denies chest pain, dizziness, dyspnea, irregular heart rhythm, leg edema, palpitations, rapid heart rate or vomiting Respiratory/Chest Respiratory/Chest: Denies chest tightness, cough, dyspnea or breast pain Gastrointestinal Gastrointestinal: Denies abdominal pain, anorexia, constipation, cramping, diarrhea, hemorrhoids, vomiting or weight changes Genitourinary Genitourinary: Denies dysuria, flank pain, genital lesions, genital pain, urinary frequency or urinary urgency Musculoskeletal Musculoskeletal: Denies back pain, difficulty walking, joint pain, limited range of motion, muscle cramps or numbness Integumentary Integumentary: Denies lesions or unusual bruising Neurologic Neurologic: Denies abnormal movements, abnormal speech, dizziness, numbness, seizure-like activity or syncope Psychiatric Psychiatric: Denies anxiety, behavioral changes, change in appetite, change in libido, cognitive impairment, confusion, depression, difficulty concentrating, hallucinations or suicidal thoughts Endocrine Endocrinology: Denies excessive sweating, polydipsia or polyuria Hematologic/Lymphatic Hematologic/Lymphatic: Denies easy bleeding, easy bruising or lymphadenopathy Allergic/Immunologic Allergic/Immunologic: Denies itchy eyes, lip swelling, seasonal rhinorrhea, rhinitis, throat swelling, tongue swelling, eczemia, wheezing or asthma Vital Signs Vital Signs Vital Signs: Weight Weight: 291 lb Body Mass Index (BMI) 47.0 Physical Exam Const alert, oriented x3, no apparent distress and healthy appearing General Appearance: cooperative; Negative for anxious HEENT normocephalic Face and Sinus: normal facial exam Eyes EOMs intact bilaterally and no scleral icterus General Eye: normal appearance of both eyes Neck full ROM and supple Lymph Lymphatic: no lymphadenopathy noted Chest Chest: abnormal inspection of the chest Resp normal respiratory effort Effort and Inspection: able to speak in complete sentences Cardio regular rate GI soft to palpation and non-tender Inspection: gravid Palpation: soft; Negative for tender external exam normal Narrative: cx is 4/70/-2, membranes intact Back/Spine no CVA tenderness Extremity normal to inspection, full ROM and no clubbing, cyanosis or edema General Extremity: Negative for calf tenderness or edema Skin Lesions: no lesions Rashes: no rashes Psych mental status grossly normal Labs Labs Labs: Blood Type A NEGATIVE Antibody Screen NEGATIVE Hct 31.4 % (37-47) L Hgb 9.8 g/dL (12.0-15.0) L Pap Smear Negative Obstetrics Ultrasound Syphilis Total Ab Non-reactive Rubella IgG Antibody Reactive (Nonreactive) Hep Bs Antigen Non-Reactive (Nonreactive) Hepatitis C Antibody Non-Reactive (Nonreactive) Chlamydia DNA (NELSY) Negative (Negative) N.gonorrhoeae DNA (NELSY) Negative (Negative) HIV 1&2 Antibody Non-Reactive (Nonreactive) Glucose 1 Hr 50 gm 91 mg/dL (70-140) Assessment & Plan (1) Anemia, mild: COMMENT: OTC Slow Fe daily opposite PNV (2) Obesity affecting : QUALIFIERS: Trimester: third trimester Obesity type affecting : unspecified obesity Qualified Code(s): O99.213 - Obesity complicating , third trimester COMMENT: weekly nsts after 36 weeks growth US at 32 and 36 weeks; 36wk US AC 98%:GCT ordered (3) Rh negative status during : QUALIFIERS: Trimester: third trimester Qualified Code(s): O26.893 - Other specified related conditions, third trimester; Z67.91 - Uns pecified blood type, Rh negative COMMENT: Rhogam @ 28 wks & prn bleeding, Given 05/17/24 (4) Anxiety and depression: COMMENT: prozac ordered but not taking at this time counseling encouraged. (5) Supervision of high-risk : QUALIFIERS: Trimester: third trimester Qualified Code(s): O09.93 - Supervision of high risk , unspecified, third trimester COMMENT: PRR , LEONEL 07/30/24, surprrise Nani Carpenter; Levi (6) : QUALIFIERS: Weeks of gestation: 39 weeks Qualified Code(s): Z3A.39 - 39 weeks gestation of COMMENT: GBS negative. declines genetic & carrier testing. nl anatomy (7) History of precipitous delivery: PLAN: Plan Patient presents IOL, plan management for with pitocin/AROM. Pain management: undecided. GBS negative. Management of any complications: none I have reviewed the [facility] and made any clinically relevant updates.
[2024-08-09 08:53] LABS: Syphilis Antibodies Nonreactive (Nonreactive)
--- NOTE | 2024-08-09 12:45 | PN_ITS ---
Progress Note patient is jaime an breathing through them. She consents to arom. current tracing: FHT: Moderate variability reactive no decelerations category I tracing [place]: q 2 min Contractions cx is still 4 cm but is effaced now from 0 to 80%/ -2. membranes ruptured and thick meconium stained fluid returns. reviewed tracing abnormalities since last note: no changes A/P: continue pitocin. anticipate this afternoon.
[2024-08-09] MEDS: Morphine 4 MG/ML Syringe IV (14:17)
--- NOTE | 2024-08-09 14:26 | OB.VAGDELI_ITS ---
Assessment & Plan (1) Anemia, mild: COMMENT: OTC Slow Fe daily opposite PNV (2) Obesity affecting : QUALIFIERS: Trimester: third trimester Obesity type affecting : unspecified obesity Qualified Code(s): O99.213 - Obesity complicating , third trimester COMMENT: weekly nsts after 36 weeks growth US at 32 and 36 weeks; 36wk US AC 98%:GCT ordered (3) Rh negative status during : QUALIFIERS: Trimester: third trimester Qualified Code(s): O26.893 - Other specified related conditions, third trimester; Z67.91 - Unspecified blood type, Rh negative COMMENT: Rhogam @ 28 wks & prn bleeding, Given 05/17/24 (4) Supervision of high-risk : QUALIFIERS: Trimester: third trimester Qualified Code(s): O09.93 - Supervision of high risk , unspecified, third trimester COMMENT: PRR , LEONEL 07/30/24, Nani Motta; Levi (5) : QUALIFIERS: Weeks of gestation: 39 weeks Qualified Code(s): Z3A.39 - 39 weeks gestation of COMMENT: GBS negative. declines genetic & carrier testing. nl anatomy (6) History of precipitous delivery: (7) Anxiety and depression: COMMENT: prozac ordered but not taking at this time counseling enco uraged. Maternal Data Information LEONEL Calculator Estimated Delivery Date Method Current WG Current Estimate 08/09/24 Ultrasound #1 40w 0d Other Estimates 07/30/24 LMP (Certain) 41w 3d Gestational age: 40 weeks 0 days Webb Doctor Who Attended Delivery: Deana Scott Vaginal Delivery Maternal Presentation Maternal Presentation: Elective Induction Vaginal Delivery Information Procedure Performed: Spontaneous Vaginal Delivery Surgeon/Practitioner: Floresita Grissom Date of Procedure: 08/09/24 Pre-Procedure Diagnosis: @ 40 weeks, favorable cervix Post-Procedure Diagnosis: @ 40 weeks, favorable cervix Type of anesthesia: None Estimated Blood Loss: 300cc Findings Description of procedure: Patient began pushing in the hands and knees position and the head would not deliver. The infant's face was noted to be a purple color and the patient was flipped over to supine position. She pushed again and delivered the head in the VERÓNICA presentation. The head was delivered atraumatically and a moderate nuchal cord ?1 was identified and easily reduced over the infant's head. The anterior and posterior shoulders delivered without complication followed by the rest of the infant and the infant was placed on the maternal abdomen then quickly taken to the gutter installer's attention. Cord was clamped and cut and gentle traction was applied to the cord and the placenta delivered spontaneously immediately following it was noted to be intact with three-vessel cord. The perineum and vagina were inspected and noted to have no laceration. EBL was 300cc. Patient and tolerated delivery well. Presentation: Vertex Amniotic Membrane Rupture Type: Artificial Amniotic Fluid Description: Thick meconium Placental Delivery Description: Spontaneous Placenta Disposition: [facility] Specimen collected: No Cord Vessel Description: 3 Vessels Cord Entanglement: Around neck x 1, tight Nuchal Cord Compression: Without compression Cord Gases: ABG and VBG Infant A Gender: Male (1 minute): 5 (5 minute): 9 Delayed Cord Clamping: No Grievance And Appeals Specialist product support consultant: No Post Vaginal Deli Medications given after delivery: IV Pitocin Episiotomy Description: None Laceration: None Complication Complications: No Multi Select Codes Urinary/Genital Urinary/Genital CPT Codes: 19256 Vaginal Delivery [facility]
--- NOTE | 2024-08-09 14:30 | DCINST_ITS ---
Discharge Instructions Diet Discharge Diet: No restrictions DC O2, CPAP, BIPAP needs Home O2 Discharge instructions: No Dressing / Incision Discharge Activity: Return to Normal Activity, May Not Drive (while taking narcotic pain medications.) and May Shower May resume sexual activity in: 4-6 weeks Dressing / Incision Call your doctor if your incision/area has: Continuous Slow Oozing, Sudden Increased Bleeding, Increased Pain/ Swelling, Increased Redness and Foul Smelling Discharge Follow Up Care Please Follow Up With: Floresita Grissom DO When: Call [phone] to make an appointment with your doctor in 6 weeks. If you had elevated blood pressure or 4th degree laceration, you will need to be seen in 2 weeks. Test Results: Test results from this visit will be discussed in further detail at your follow- up appointment, if applicable. Discharge Plan Admission Admit Date/Time: 08/09/24 07:18 Attending Provider: Floresita Grissom Primary Care Provider: Kavitha Noonan Discharge Orders/Prescriptions Prescriptions: No Action PNV-DHA 27 mg iron-1 mg -300 mg capsule 1 cap PO DAILY famotidine [Pepcid] 20 mg tablet 20 mg PO BID Qty: 60 4RF Referrals / Follow Up: Kavitha Noonan MD [Primary Care Provider] -
[2024-08-09] MEDS: Oxytocin 15 Units/NS 250ml 15 UNITS/250 ML IV.SOLN 83 UNITS IV (14:45)
[2024-08-09] MEDS: Acetaminophen 500 MG Tablet 1000 MG PO (22:30)
[2024-08-09] MEDS: 0.9% Saline Lock 10 ML Syringe IV (23:15)
[2024-08-10] MEDS: Rho(D) Immune Globulin 300 MCG (1500 Unit) Syringe IV (03:27)
[2024-08-10] MEDS: 0.9% Saline Lock 10 ML Syringe IV (03:28)
[2024-08-10 03:34] VITALS: BP 106/65; PULSE 77; RESP 18; TEMP 36.4; O2SAT 96
--- NOTE | 2024-08-10 07:45 | PN.OBGYN_ITS ---
Subjective Subjective Patient doing well without complaints. Tolerating PO. Ambulating and voiding without difficulty. Feeding well. Denies chest pain, shortness of breath, calf pain/swelling, fevers, chills, lightheadedness. Objective Data Objective Data Vital Signs: Vital Signs Temp Pulse Resp BP Pulse Ox O2 Del Method 97.6 F L 77 18 106/65 96 Room Air 08/10/24 03:34 08/10/24 03:34 08/10/24 03:34 08/10/24 03:34 08/10/24 03:34 08/10/24 03:34 Oxygen Delivery Method Room Air Weight: 291 lb Body Mass Index (BMI) 47.0 Intake & Output: Intake and Output for Last 24 Hours 08/08/24 08/09/24 08/10/24 23:59 23:59 23:59 Intake Total 774.47 / 774.47 Output Total 600 / 600 300 / 300 Balance 174.47 / 174.47 -300 / -300 Lab / Micro Data 08/09/24 07:45 Labs: Laboratory Results - last 24 hr 08/09/24 07:45: WBC 10.4, RBC 4.43, Hgb 9.8 L, Hct 31.4 L, MCV 70.9 L, MCH 22.1 L, MCHC 31.2 L, RDW Std Deviation 42.2, RDW Coeff of [place] 16.6 H, Plt Count 241, MPV 10.7, Immature Gran % (Auto) 1.000 H, Neut % (Auto) 79.1 H, Lymph % (Auto) 12.8 L, Orange % (Auto) 5.8, Eos % (Auto) 1.0, Baso % (Auto) 0.3, Absolute Neuts (auto) 8.2 H, Absolute Lymphs (auto) 1.32, Nucleated RBC % 0, Syphilis Total Ab Nonreactive, Blood Type A NEGATIVE, Antibody Screen NEGATIVE 08/09/24 16:00: Screen NEGATIVE, Baby's Blood Type A POSITIVE, Baby's VALENTINA NEGATIVE Physical Exam Const alert and oriented x3 HEENT normocephalic Eyes PERRL Neck full ROM Resp normal respiratory effort GI soft to palpation GI Narrative: FF below U Assessment & Plan (1) Vaginal delivery: COMMENT: 08/09/24 Boy Dashawn MARIE (2) Rh negative status during : QUALIFIERS: Trimester: third trimester Qualified Code(s): O26.893 - Other specified related conditions, third trimester; Z67.91 - Unspecified blood type, Rh negative COMMENT: Rhogam @ 28 wks & prn bleeding, Given 05/17/24 PLAN: Plan s/p PPD # 1 1. routine post delivery care 2. breast feeding- support given 3. rh negative-rhogam candidate 4. rubella immune 5. home today
[2024-08-10 08:36] VITALS: BP 107/72; PULSE 73; RESP 17; TEMP 36.3; O2SAT 97
[2024-08-10] MEDS: Acetaminophen 500 MG Tablet 1000 MG PO (08:44)
[2024-08-10 12:30] VITALS: BP 118/69; PULSE 75; RESP 16; TEMP 36.3
--- NOTE | 2024-08-10 13:05 | CASEMGMT ---
Social Work Assessment Labor and Delivery Unit Patient Address: [address] [place] [address] [address] [place] [address] Phone number:[phone] Date of Referral: 08/09/24 Time of Referral:? 823 Referred By: Dr. Grissom Date of Intervention: ??08/10/24 Time of Intervention:? 1029 Reason for Referral: anxiety, depression, family member alcoholic or addict? History obtained from: medical records, MOB Household composition: Currently residing in the family home is RUSSELL JACKSON, their two older children: Ze (6) and Nani (3). baby to be included in household when ready for discharge. Parents deny any problems or concerns with housing, reporting it to be safe and secure. Patient's parent/guardian status:? MANUEL states that she and RUSSELL have been together for a long time, but for 4 years after meeting on social media. baby is third baby for parents together. ?No concerns reported regarding domestic violence or intimate partner violence. Medical History: ?MANUEL is 29 year old female who is 3, para 2- now 3 following labor and delivery of . MANUEL received routine care during with [facility]. MANUEL presented to hospital and delivered baby via spontaneous vaginal delivery at 40 weeks gestation. Baby boy, named Dashawn Coreas, was born weighing 9lb 6oz with apgars of 5 and 9 at one and five minutes of life, respectfully. MANUEL is breast feeding and baby will be followed by Dr. Fletcher for pediatrics. Educational Status:? Both parents graduated from high school, MANUEL obtained her associates degree. Parents deny any problems or concerns with reading, learning or comprehension. 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 Infant Supplies: All necessary baby supplies obtained, including: car seat, safe sleep space, clothes, diapers and wipes. Childcare/Caregiver(s):? MANUEL will be the primary caregiver, along with RUSSELL when he is not working Transportation:?Both parents have their drivers license and reliable means of transportation, no barriers. ? Programs/Agencies Involved: ?Parents are not connected to any community agencies that provide financial assistance as they are over income. ?? Children Services/Legal Issues:??No history of involvement with children services, no issues or concerns warranting referral to be made at this time. Behavioral Health Issues: ??Mental Health History: FOB denies mental health history. MOB states that she has history of anxiety and depression. MOB states that she does not feel as though anxiety is anything that she struggles with any more. MOB states that she was prescribed fluoxetine before her daughter was born, and then her OBGYN increased her dosage after her daughter was born due to feeling an increase in anxiety during her period. MOB states that she that time she does not feel as though anxiety is something that she struggles with on the regular. MOB states that she did not take her Fluoxetine consistently throughout this . MOB states that now that baby has been born she feels really good, denying any problems with anxiety, depression, feeling down, sad, anxious or overwhelmed. Substance Use History:?Parents deny substance use prior to and during . ? Family History:?MOB states that her father has history of alcohol abuse. Parents recognize the importance of utilizing healthy and safe coping mechanisms opposed to seeking comfort from drugs or alcohol. ? Drug Screens: No drug screens observed while completing chart review. Family/Social Stressors:?Parents deny issues, concerns or stressors at this time. Support Systems: MOB states that both sets of grandparents are supportive. Depression/Shaken Baby/Safe Sleeping: Roseanna educated parents on signs and symptoms of baby blues and depression and anxiety. MOB states that she is familiar with the terms and what makes her feel anxious. MOB staets that she normally feels overwhelmed and stressed, and is aware that can increase these feelings. MOB states that she knows that to help herself she needs to give her self a break and step away and re-group. FOB states that if MOB were to struggle with her mental health he would be able to recognize and would know how to help her. MOB encouraged to give FOB specific ideas on how he can help her if she were to struggle with any symptoms. MOB states at this time she feels like herself, is happy baby is here. Roseanna educated parents on shaken baby prevention and ABCS of safe sleep. Parents express understanding. ASSESSMENT:? MOB and baby admitted following labor and delivery of . This is third baby for parents together. All necessary baby supplies obtained. Natural supports in place. MOB with mental health history positive for anxiety and depression. MOB is prescribed fluoxetine to help her manage her mental health symptoms. MOB knowledgeable of signs and symptoms of baby blues and depression and anxiety to be mindful of. MOB reports that she has felt well during this period and feels as though her mental health has been managed. Parents were receptive to meeting with sw to complete psychosocial assessment. MOB was laying in bed comfortably and holding baby lovingly and tenderly. MOB was talkative and engaging, conversation flowed naturally. PLAN:?? No other services requested or indicated. MOB and baby to be discharged when medically ready. Parents were provided literature regarding: signs and symptoms of baby blues and mood and anxiety disorders, Help Me Grow, shaken baby prevention, ABCs of safe sleep and a list of county resources that are available for them should any needs present themselves. Tobias Puga, SEMICOND[employer]CTOR TESTING GROUP LEADER, VUL[employer] CREWMEMBER
[2024-08-10] MEDS: Ibuprofen 600 MG Tablet PO (13:21)
== END 2024-08-10 15:41 | disposition home or self-care (01) | DRG 807 ==
PROVIDERS: Advanced Practice Midwife; Admitting Provider Obstetrics & Gynecology; PCP Family Medicine; Referring Provider Obstetrics & Gynecology; Visit Provider Obstetrics & Gynecology
DX: O69.1XX0 Labor and delivery complicated by cord around neck, with compression, not applicable or unspecified (principal); Z37.0 Single live birth; O99.344 Other mental disorders complicating childbirth; D64.9 Anemia, unspecified; F32.A Depression, unspecified; O99.214 Obesity complicating childbirth; F41.9 Anxiety disorder, unspecified; Z3A.40 40 weeks gestation of pregnancy; O99.02 Anemia complicating childbirth; Z67.91 Unspecified blood type, Rh negative; Z87.59 Personal history of other complications of pregnancy, childbirth and the puerperium
CPT/HCPCS: 59025; 59050; 85025; 85461; 86780; 86850; 86900; 86901; 90384; 99221; A4216; G0378; J2790; J2791